=== PATIENT | female | born 1955 | race Caucasian/White ===

== ENCOUNTER 2016-07-24 05:08 | Emergency (ER) | payer MEDICAID ==
[2016-07-24 06:09] LABS: BASOPHIL % 0.6 % (0-2); PLATELET COUNT 158 x10^3mcL (130-400); RED CELL DISTRIBUTION WIDTH 13.3 % (11.5-14.5)
[2016-07-24 06:17] LABS: CALCIUM 9.4 mg/dL (8.5-10.1); CARBON DIOXIDE 30.7 mmol/L (21-32); CREATININE SERUM 1.1 mg/dL (0.6-1.0); POTASSIUM SERUM 3.6 mmol/L (3.5-5.1)
[2016-07-24 06:21] LABS: ALBUMIN 3.9 g/dL (3.4-5.0); BILIRUBIN TOTAL 0.3 mg/dL (0.20-1.00); TOTAL PROTEIN, SERUM 6.8 g/dL (6.4-8.2)
[2016-07-24 06:27] LABS: microscopic required? NO
[2016-07-24 06:34] LABS: UA SPECIFIC GRAVITY <=1.005 (1.005-1.035); urine erythrocyte NEGATIVE (NEGATIVE)
[2016-07-24 10:51] VITALS: BP 124/71
== END 2016-07-24 10:30 | disposition home or self-care (01) ==
LOC: ED 05:08
PROVIDERS: Emergency Medicine
DX: R10.31 Right lower quadrant pain (principal); G70.00 Myasthenia gravis without (acute) exacerbation; I10 Essential (primary) hypertension; I42.9 Cardiomyopathy, unspecified; Z90.5 Acquired absence of kidney; Z90.49 Acquired absence of other specified parts of digestive tract
CPT/HCPCS: J2405; J7030; Q9967

== ENCOUNTER 2019-01-27 09:18 | Emergency (ER) | payer MEDICAID ==
[~2019-01-27] VITALS: Ht 162.6 cm; Wt 51.8 kg
[2019-01-27 09:25] VITALS: Ht 162.6 cm; Wt 51.8 kg
[2019-01-27 12:19] VITALS: BP 138/65
== END 2019-01-27 12:19 | disposition home or self-care (01) ==
LOC: ED 09:18
DX: M54.6 Pain in thoracic spine (principal); I10 Essential (primary) hypertension; Z88.2 Allergy status to sulfonamides; Z88.6 Allergy status to analgesic agent